=== PATIENT | male | born 1960 | race Asian ===

== ENCOUNTER 2019-10-18 11:23 | Emergency (ER) | payer MEDICAID, OTHER ==
[~2019-10-18] VITALS: Ht 170.2 cm; Wt 63.6 kg
[2019-10-18] MEDS ORDERED: IPRATROPIUM BROMIDE 0.5 MG/2.5 ML NEB SOLUTION NEB ONE (11:45)
[2019-10-18] MEDS ORDERED: ALBUTEROL SULFATE 5 MG/ML 20 ML NEB SOLN [BULK] NEB ONE (11:45)
[2019-10-18] MEDS ORDERED: ALBUTEROL SULFATE HFA 90 MCG/PUFF 8 GM INHALER IH ONE (11:45)
[2019-10-18] MEDS ORDERED: 0.9% SODIUM CHLORIDE 5 ML NEB SOLUTION NEB ONE (11:55)
[2019-10-18] MEDS ORDERED: PredniSONE 20 MG TABLET PO ONE ×2 (13:15)
[2019-10-18] MEDS ORDERED: AZITHROMYCIN 250 MG TABLET PO ONE (14:30)
[2019-10-18 14:56] VITALS: BP 111/76
== END 2019-10-18 15:29 | disposition home or self-care (01) ==
LOC: EMS 11:24
DX: J20.9 Acute bronchitis, unspecified (principal); J45.901 Unspecified asthma with (acute) exacerbation; F17.210 Nicotine dependence, cigarettes, uncomplicated
CPT/HCPCS: 71046; 94640; 94644; 99285; 99406; J7512; J3535

== ENCOUNTER 2020-01-20 17:06 | Emergency (ER) | payer OTHER ==
[~2020-01-20] VITALS: Ht 170.2 cm; Wt 68.2 kg
[2020-01-20] MEDS ORDERED: BECL10.6 IH (17:10)
[2020-01-20] MEDS ORDERED: ALBU8HFA IH (17:10)
[2020-01-20] MEDS ORDERED: MethylPREDNISolone SOD SUCC 125 MG/2 ML VIAL IVP ONE (17:30)
[2020-01-20] MEDS ORDERED: ALBUTEROL SULFATE HFA 90 MCG/PUFF 8 GM INHALER IH ONE (17:30)
[2020-01-20 18:18] LABS: BASOPHILS % (AUTO) 0.7 % (0.0-2.0); EOSINOPHILS % (AUTO) 10.1 % (1.0-6.0); HEMATOCRIT 43.5 % (41-53); HEMOGLOBIN 14.5 g/dL (13.5-17.5); LYMPHOCYTES # (AUTO) 1.4 K/uL (1.0-4.8); LYMPHOCYTES % (AUTO) 17.6 % (22.0-44.0); MEAN CORPUSCULAR HEMOGLOBIN 32.5 pg (26.0-34.0); MEAN CORPUSCULAR HGB CONC 33.5 G/dL (31.0-37.0); MEAN CORPUSCULAR VOLUME 97 fL (80-100); MONOCYTES # (AUTO) 0.5 K/uL (0.1-1.0); MONOCYTES % (AUTO) 6.8 % (2.0-9.0); NEUTROPHILS # (AUTO) 5.1 K/uL (1.8-7.7); NEUTROPHILS % (AUTO) 64.8 % (40.0-70.0); PLATELET COUNT (AUTO) 230 K/uL (150-450); RED BLOOD CELL COUNT(AUTO) 4.48 MIL/uL (4.50-5.90); RED CELL DISTRIBUTION WIDTH 13.3 % (11.5-14.5)
[2020-01-20 18:37] LABS: INFLUENZA TYPE A NEGATIVE FOR TYPE A (NEGATIVE); INFLUENZA TYPE B NEGATIVE FOR TYPE B (NEGATIVE)
[2020-01-20 18:41] LABS: PROTHROMBIN TIME 10.4 SEC (9.4-11.6)
[2020-01-20 18:53] LABS: ANION GAP 10 mmol/L (8-16); CALCIUM, TOTAL 8.9 mg/dL (8.8-10.5); CARBON DIOXIDE 26 mmol/L (22-29); CHLORIDE 103 mmol/L (98-107); CREATININE 0.85 mg/dL (0.60-1.30); GLOMERULAR FILTR. RATE CALC > 60 mL/min (>60); GLUCOSE,RANDOM 128 mg/dL (70-110); POTASSIUM 3.2 mmol/L (3.5-5.1); SODIUM SERUM 139 mmol/L (136-145); UREA NITROGEN, BLOOD 6 mg/dL (7-18)
[2020-01-20 18:59] LABS: B-TYPE NATRIURETIC PEPTIDE 14 pg/mL (0-100)
[2020-01-20] MEDS ORDERED: POTASSIUM CHLORIDE 20 MEQ ER TABLET PO ONE (19:00)
[2020-01-20 19:17] LABS: ALANINE AMINOTRANSFERASE 71 U/L (12-78); ALBUMIN 3.8 g/dL (3.4-5.0); ALKALINE PHOSPHATASE 85 U/L (46-116); ASPARTATE AMINOTRANSFERASE 39 U/L (15-37); BILIRUBIN,TOTAL 0.9 mg/dL (0.1-1.0); CREATINE KINASE, TOTAL ONLY 116 U/L (39-308); TOTAL PROTEIN, SERUM 7.5 g/dL (6.4-8.2)
[2020-01-20 19:52] LABS: APPEARANCE,URINE CLEAR (CLEAR); BILIRUBIN,URINE NEGATIVE (NEGATIVE); GLUCOSE, URINE (UA) NEGATIVE (NEGATIVE); KETONES,URINE NEGATIVE (NEGATIVE); LEUKOCYTE ESTERASE ,URINE NEGATIVE (NEGATIVE); NITRATE,URINE NEGATIVE (NEGATIVE); OCCULT BLOOD,URINE NEGATIVE (NEGATIVE); PH,URINE 6.5 (5.0-8.0); PROTEIN,URINE NEGATIVE (NEGATIVE)
[2020-01-20 20:25] VITALS: BP 127/83
== END 2020-01-20 20:47 | disposition home or self-care (01) ==
LOC: EMS 17:08
DX: J45.909 Unspecified asthma, uncomplicated (principal); F17.210 Nicotine dependence, cigarettes, uncomplicated; Z03.818 Encounter for observation for suspected exposure to other biological agents ruled out
CPT/HCPCS: 36415; 71045; 80053; 81003; 82550; 83880; 84484; 85025; 85610; 85730; 87635; 87804; 93005; 94640; 96374; 99285; J2930; J3535

== ENCOUNTER 2020-03-18 00:46 | Emergency (ER) | payer OTHER ==
[~2020-03-18] VITALS: Ht 172.7 cm; Wt 77.3 kg
[~2020-03-18 00:46] MED LIST: ALBU8HFA IH; BECL10.6 IH
[2020-03-18 02:11] VITALS: BP 133/90
[2020-03-18] MEDS ORDERED: HYDROGEN PEROXIDE 118 ML SOLUTION TP ONE (02:30)
[2020-03-18] MEDS ORDERED: BACITRACIN 0.9 GM PACKET OINTMENT TP ONE (02:30)
[2020-03-18] MEDS ORDERED: PERTUSS(ACELL),DIPH,TET VAC/PF 0.5 ML VIAL IM ONE (02:45)
== END 2020-03-18 03:02 | disposition home or self-care (01) ==
LOC: EMS 00:46
DX: S01.81XA Laceration without foreign body of other part of head, initial encounter (principal); F17.210 Nicotine dependence, cigarettes, uncomplicated; J45.909 Unspecified asthma, uncomplicated; W54.0XXA Bitten by dog, initial encounter; Y93.89 Activity, other specified; Y92.89 Other specified places as the place of occurrence of the external cause; Y99.8 Other external cause status
CPT/HCPCS: 90471; 90715; 99406

== ENCOUNTER 2020-05-13 12:59 | Emergency (ER) | payer OTHER ==
[~2020-05-13] VITALS: Ht 172.7 cm; Wt 63.6 kg
[2020-05-13 15:02] VITALS: BP 131/63
== END 2020-05-13 15:02 | disposition home or self-care (01) ==
LOC: EMS 13:03
DX: L03.115 Cellulitis of right lower limb (principal); J45.909 Unspecified asthma, uncomplicated; F17.210 Nicotine dependence, cigarettes, uncomplicated

== ENCOUNTER 2020-07-29 20:41 | Emergency (ER) | payer OTHER ==
[~2020-07-29] VITALS: Ht 170.2 cm; Wt 77.3 kg
[2020-07-29] MEDS ORDERED: MULT-1203 PO (20:50)
[2020-07-29 22:10] VITALS: BP 132/84
== END 2020-07-29 22:30 | disposition home or self-care (01) ==
LOC: EMS 20:43
DX: K12.1 Other forms of stomatitis (principal); F17.210 Nicotine dependence, cigarettes, uncomplicated; J45.909 Unspecified asthma, uncomplicated; Z79.899 Other long term (current) drug therapy
CPT/HCPCS: 99406

== ENCOUNTER 2020-11-14 04:11 | Emergency (ER) | payer OTHER ==
[~2020-11-14] VITALS: Ht 172.7 cm; Wt 77.3 kg
[~2020-11-14 04:11] MED LIST changes: -ALBU8HFA IH; -BECL10.6 IH; +MULT-1203 PO
[2020-11-14] MEDS ORDERED: ONDANSETRON HCL 4 MG/2 ML VIAL IVP ONE (04:45)
[2020-11-14] MEDS ORDERED: KETOROLAC TROMETHAMINE 30 MG/ML VIAL IVP ONE (04:45)
[2020-11-14 05:06] LABS: ANION GAP 12 mmol/L (8-16); CALCIUM, TOTAL 9.5 mg/dL (8.8-10.5); CARBON DIOXIDE 26 mmol/L (22-29); CHLORIDE 102 mmol/L (98-107); CREATININE 1.16 mg/dL (0.60-1.30); GLOMERULAR FILTR. RATE CALC > 60 mL/min (>60); GLUCOSE,RANDOM 204 mg/dL (70-110); POTASSIUM 3.4 mmol/L (3.5-5.1); SODIUM SERUM 140 mmol/L (136-145); UREA NITROGEN, BLOOD 13 mg/dL (7-18)
[2020-11-14 05:07] LABS: BASOPHILS % (AUTO) 0.1 % (0.0-2.0); EOSINOPHILS % (AUTO) 2.4 % (1.0-6.0); HEMATOCRIT 43.4 % (41-53); HEMOGLOBIN 14.7 g/dL (13.5-17.5); LYMPHOCYTES # (AUTO) 1.4 K/uL (1.0-4.8); LYMPHOCYTES % (AUTO) 12.2 % (22.0-44.0); MEAN CORPUSCULAR HGB CONC 33.9 G/dL (31.0-37.0); MEAN CORPUSCULAR VOLUME 94 fL (80-100); MONOCYTES # (AUTO) 0.4 K/uL (0.1-1.0); MONOCYTES % (AUTO) 3.5 % (2.0-9.0); NEUTROPHILS # (AUTO) 9.4 K/uL (1.8-7.7); NEUTROPHILS % (AUTO) 81.8 % (40.0-70.0); PLATELET COUNT (AUTO) 205 K/uL (150-450); RED CELL DISTRIBUTION WIDTH 12.8 % (11.5-14.5)
[2020-11-14 05:11] LABS: ALANINE AMINOTRANSFERASE 62 U/L (12-78); ALBUMIN 4.1 g/dL (3.4-5.0); ALKALINE PHOSPHATASE 103 U/L (46-116); ASPARTATE AMINOTRANSFERASE 31 U/L (15-37); BILIRUBIN,TOTAL 0.8 mg/dL (0.1-1.0); LIPASE 236 U/L (73-393)
[2020-11-14] MEDS ORDERED: POTASSIUM CHLORIDE 20 MEQ ER TABLET PO ONE (05:30)
[2020-11-14 06:00] VITALS: BP 140/84
== END 2020-11-14 06:08 | disposition home or self-care (01) ==
LOC: EMS 04:12
DX: K80.20 Calculus of gallbladder without cholecystitis without obstruction (principal); E86.9 Volume depletion, unspecified; F17.210 Nicotine dependence, cigarettes, uncomplicated
CPT/HCPCS: 76705; 80053; 83690; 85025; 96374; 96375; 99284; J1885; J2405

== ENCOUNTER 2021-03-18 13:01 | Emergency (ER) | payer OTHER ==
[~2021-03-18] VITALS: Ht 170.2 cm; Wt 72.7 kg
[2021-03-18] MEDS ORDERED: MethylPREDNISolone SOD SUCC 125 MG/2 ML VIAL IVP ONE (13:45)
[2021-03-18] MEDS ORDERED: IPRATROPIUM BROMIDE 0.5 MG/2.5 ML NEB SOLUTION NEB ONE (13:45)
[2021-03-18] MEDS ORDERED: ALBUTEROL SULFATE 5 MG/ML 20 ML NEB SOLN [BULK] NEB ONE ×2 (13:45→15:30)
[2021-03-18 14:21] LABS: COVID AG,FIA SOURCE NASAL SWAB
[2021-03-18 16:07] LABS: HEMATOCRIT 43.6 % (41-53); HEMOGLOBIN 14.3 g/dL (13.5-17.5); MEAN CORPUSCULAR HEMOGLOBIN 31.2 pg (26.0-34.0); MEAN CORPUSCULAR HGB CONC 32.7 G/dL (31.0-37.0); MEAN CORPUSCULAR VOLUME 95 fL (80-100); PLATELET COUNT (AUTO) 206 K/uL (150-450); RED BLOOD CELL COUNT(AUTO) 4.58 MIL/uL (4.50-5.90); RED CELL DISTRIBUTION WIDTH 13.5 % (11.5-14.5)
[2021-03-18 16:15] LABS: ANION GAP 17 mmol/L (8-16); CALCIUM, TOTAL 8.8 mg/dL (8.8-10.5); CARBON DIOXIDE 23 mmol/L (22-29); CHLORIDE 104 mmol/L (98-107); CREATININE 1.05 mg/dL (0.60-1.30); GLOMERULAR FILTR. RATE CALC > 60 mL/min (>60); GLUCOSE,RANDOM 170 mg/dL (70-110); POTASSIUM 3.1 mmol/L (3.5-5.1); SODIUM SERUM 144 mmol/L (136-145); UREA NITROGEN, BLOOD 10 mg/dL (7-18)
[2021-03-18 16:20] LABS: ALANINE AMINOTRANSFERASE 51 U/L (12-78); ALBUMIN 3.6 g/dL (3.4-5.0); ALKALINE PHOSPHATASE 92 U/L (46-116); ASPARTATE AMINOTRANSFERASE 25 U/L (15-37); BILIRUBIN,TOTAL 0.5 mg/dL (0.1-1.0); TOTAL PROTEIN, SERUM 7.5 g/dL (6.4-8.2)
[2021-03-18 16:24] LABS: BAND NEUTROPHILS % (MANUAL) 5 % (0-5); LYMPHOCYTES % (MANUAL) 8 % (22-44); MONOCYTES % (MANUAL) 3 % (2-9); PLATELET MORPHOLOGY COMMENT GIANT PLTS PRESENT; SEGMENTED NEUTROPHILS % 84 % (40-70)
[2021-03-18 16:33] VITALS: BP 118/68
== END 2021-03-18 16:42 | disposition home or self-care (01) ==
LOC: EMS 13:06
DX: J45.901 Unspecified asthma with (acute) exacerbation (principal); E78.00 Pure hypercholesterolemia, unspecified; I10 Essential (primary) hypertension; F17.210 Nicotine dependence, cigarettes, uncomplicated; Z20.822 Contact with and (suspected) exposure to COVID-19
CPT/HCPCS: 36415; 71045; 80053; 85025; 87426; 94640; 96374; 99291; J2930

== ENCOUNTER 2022-03-20 13:54 | Emergency (ER) | payer OTHER ==
[~2022-03-20] VITALS: Ht 172.7 cm; Wt 63.6 kg
[2022-03-20] MEDS ORDERED: ATOR20TA86 PO (14:02)
[2022-03-20] MEDS ORDERED: HYDROGEN PEROXIDE 118 ML SOLUTION TP ONE (15:00)
[2022-03-20] MEDS ORDERED: RISP4TAB73 PO (15:08)
[2022-03-20] MEDS ORDERED: TRAZ-257 PO (15:08)
[2022-03-20] MEDS ORDERED: RISP0.5T39 PO (15:08)
[2022-03-20 15:10] VITALS: BP 131/85
== END 2022-03-20 15:58 | disposition home or self-care (01) ==
LOC: EMS 13:54
DX: H61.22 Impacted cerumen, left ear (principal); E78.00 Pure hypercholesterolemia, unspecified; F17.210 Nicotine dependence, cigarettes, uncomplicated; J45.909 Unspecified asthma, uncomplicated; I10 Essential (primary) hypertension
CPT/HCPCS: 69209; 99282; Z7502; Z7610

== ENCOUNTER 2022-10-06 13:28 | Emergency (ER) | payer OTHER ==
[~2022-10-06] VITALS: Ht 175.3 cm; Wt 77.3 kg
[~2022-10-06 13:28] MED LIST changes: +ATOR20TA86 PO; +RISP0.5T39 PO; +RISP4TAB73 PO; +TRAZ-257 PO
[2022-10-06 16:43] VITALS: BP 106/70
== END 2022-10-06 18:03 | disposition home or self-care (01) ==
LOC: EMS 13:41
DX: H61.21 Impacted cerumen, right ear (principal); J45.909 Unspecified asthma, uncomplicated; E78.00 Pure hypercholesterolemia, unspecified; I10 Essential (primary) hypertension; F17.210 Nicotine dependence, cigarettes, uncomplicated; K76.0 Fatty (change of) liver, not elsewhere classified
CPT/HCPCS: 69209; 99284; Z7502

== ENCOUNTER 2022-12-08 16:11 | Emergency (ER) | payer OTHER ==
[~2022-12-08] VITALS: Ht 172.7 cm; Wt 77.3 kg
[2022-12-08 17:21] VITALS: BP 135/70
== END 2022-12-08 18:44 | disposition home or self-care (01) ==
LOC: EMS 16:14
DX: G47.00 Insomnia, unspecified (principal); J45.909 Unspecified asthma, uncomplicated; E78.00 Pure hypercholesterolemia, unspecified; I10 Essential (primary) hypertension; F17.210 Nicotine dependence, cigarettes, uncomplicated; K76.0 Fatty (change of) liver, not elsewhere classified
CPT/HCPCS: 99281; Z7502

== ENCOUNTER 2023-01-25 11:11 | Emergency (ER) | payer OTHER ==
[~2023-01-25] VITALS: Ht 170.2 cm; Wt 81.8 kg
[~2023-01-25 11:11] MED LIST changes: -RISP0.5T39 PO
[2023-01-25] MEDS ORDERED: ACETAMINOPHEN 500 MG TABLET PO ONE (15:30)
[2023-01-25 15:36] LABS: BASOPHILS % (AUTO) 0.6 % (0.0-2.0); EOSINOPHILS % (AUTO) 0.9 % (1.0-6.0); HEMATOCRIT 44.8 % (41-53); HEMOGLOBIN 14.7 g/dL (13.5-17.5); LYMPHOCYTES # (AUTO) 1.5 K/uL (1.0-4.8); LYMPHOCYTES % (AUTO) 13.1 % (22.0-44.0); MEAN CORPUSCULAR HGB CONC 32.7 G/dL (31.0-37.0); MEAN CORPUSCULAR VOLUME 95 fL (80-100); MONOCYTES # (AUTO) 0.7 K/uL (0.1-1.0); MONOCYTES % (AUTO) 6.3 % (2.0-9.0); NEUTROPHILS % (AUTO) 79.1 % (40.0-70.0); PLATELET COUNT (AUTO) 235 K/uL (150-450); RED BLOOD CELL COUNT(AUTO) 4.73 MIL/uL (4.50-5.90); RED CELL DISTRIBUTION WIDTH 13.3 % (11.5-14.5)
[2023-01-25 15:44] LABS: ANION GAP 12 mmol/L (8-16); CALCIUM, TOTAL 8.9 mg/dL (8.8-10.5); CARBON DIOXIDE 25 mmol/L (22-29); CHLORIDE 103 mmol/L (98-107); CREATININE 0.99 mg/dL (0.60-1.30); GLOMERULAR FILTR. RATE CALC > 60 mL/min (>60); GLUCOSE,RANDOM 193 mg/dL (70-110); POTASSIUM 3.4 mmol/L (3.5-5.1); SODIUM SERUM 140 mmol/L (136-145); UREA NITROGEN, BLOOD 12 mg/dL (7-18)
[2023-01-25 18:43] VITALS: BP 139/84
== END 2023-01-25 18:46 | disposition home or self-care (01) ==
LOC: EMS 11:12
DX: R51.9 Headache, unspecified (principal); J45.909 Unspecified asthma, uncomplicated; E78.00 Pure hypercholesterolemia, unspecified; I10 Essential (primary) hypertension; F17.210 Nicotine dependence, cigarettes, uncomplicated
CPT/HCPCS: 70450; 80048; 85025; 99284

== ENCOUNTER 2023-03-13 15:05 | Emergency (ER) | payer OTHER ==
[~2023-03-13] VITALS: Ht 172.7 cm; Wt 79.5 kg
[~2023-03-13 15:05] MED LIST changes: +ATOR20TA PO; -ATOR20TA86 PO
[2023-03-13 15:18] VITALS: TEMP 98.6
[2023-03-13] MEDS ORDERED: ALBU18HF12 IH (15:21)
[2023-03-13] MEDS ORDERED: FAMOTIDINE 40 MG in SODIUM CHLORIDE 0.9% 100 ML IV ONE (16:15)
[2023-03-13] MEDS ORDERED: SODIUM CHLORIDE 0.9% 1,000 ML IV ONE (16:15)
[2023-03-13 16:59] LABS: BASOPHILS % (AUTO) 0.4 % (0.0-2.0); EOSINOPHILS % (AUTO) 3.3 % (1.0-6.0); HEMATOCRIT 42.2 % (41-53); HEMOGLOBIN 14.3 g/dL (13.5-17.5); LYMPHOCYTES # (AUTO) 1.4 K/uL (1.0-4.8); LYMPHOCYTES % (AUTO) 16.2 % (22.0-44.0); MEAN CORPUSCULAR HEMOGLOBIN 32.3 pg (26.0-34.0); MEAN CORPUSCULAR HGB CONC 33.9 G/dL (31.0-37.0); MEAN CORPUSCULAR VOLUME 95 fL (80-100); MONOCYTES # (AUTO) 0.6 K/uL (0.1-1.0); MONOCYTES % (AUTO) 6.5 % (2.0-9.0); NEUTROPHILS # (AUTO) 6.3 K/uL (1.8-7.7); NEUTROPHILS % (AUTO) 73.6 % (40.0-70.0); PLATELET COUNT (AUTO) 155 K/uL (150-450); RED BLOOD CELL COUNT(AUTO) 4.43 MIL/uL (4.50-5.90); RED CELL DISTRIBUTION WIDTH 13.1 % (11.5-14.5)
[2023-03-13 17:08] LABS: ANION GAP 10 mmol/L (8-16); CARBON DIOXIDE 27 mmol/L (22-29); CHLORIDE 105 mmol/L (98-107); CREATININE 0.74 mg/dL (0.60-1.30); GLOMERULAR FILTR. RATE CALC > 60 mL/min (>60); GLUCOSE,RANDOM 104 mg/dL (70-110); POTASSIUM 3.4 mmol/L (3.5-5.1); SODIUM SERUM 142 mmol/L (136-145)
[2023-03-13 17:14] LABS: ALANINE AMINOTRANSFERASE 161 U/L (12-78); ALBUMIN 3.6 g/dL (3.4-5.0); ALKALINE PHOSPHATASE 111 U/L (46-116); ASPARTATE AMINOTRANSFERASE 178 U/L (15-37); BILIRUBIN,TOTAL 1.2 mg/dL (0.1-1.0); LIPASE 176 U/L (73-393); TOTAL PROTEIN, SERUM 7.7 g/dL (6.4-8.2)
[2023-03-13 17:21] LABS: COVID AG,FIA SOURCE NASOPHARYNGEAL
[2023-03-13 17:35] LABS: LACTIC ACID 1.3 mmol/L (0.4-2.0)
[2023-03-13 18:48] LABS: APPEARANCE,URINE CLEAR (CLEAR); BILIRUBIN,URINE NEGATIVE (NEGATIVE); GLUCOSE, URINE (UA) NEGATIVE (NEGATIVE); KETONES,URINE NEGATIVE (NEGATIVE); LEUKOCYTE ESTERASE ,URINE NEGATIVE (NEGATIVE); NITRATE,URINE NEGATIVE (NEGATIVE); OCCULT BLOOD,URINE NEGATIVE (NEGATIVE); PROTEIN,URINE NEGATIVE (NEGATIVE); UROBILINOGEN,URINE <=1.0 mg/dL (<=1.0)
[2023-03-13 18:54] LABS: BACTERIA,URINE None Seen /HPF (None Seen); RBC,URINE None Seen /HPF (0-2); SQUAMOUS EPITHELIAL CELL,UR None Seen /LPF (None Seen); WBC,URINE 0-2 /HPF (0-5)
[2023-03-13 19:29] VITALS: BP 127/81; PULSE 79; RESP 18
[2023-03-15] MEDS ORDERED: FLUT12AE19 IH (11:24)
[2023-03-15] MEDS ORDERED: FLUT12AE20 IH (13:30)
== END 2023-03-13 19:32 | disposition home or self-care (01) ==
LOC: EMS 15:06
DX: R10.84 Generalized abdominal pain (principal); K80.50 Calculus of bile duct without cholangitis or cholecystitis without obstruction; J45.909 Unspecified asthma, uncomplicated; E78.00 Pure hypercholesterolemia, unspecified; I10 Essential (primary) hypertension; F17.210 Nicotine dependence, cigarettes, uncomplicated; K76.0 Fatty (change of) liver, not elsewhere classified; Z20.822 Contact with and (suspected) exposure to COVID-19
CPT/HCPCS: 99285; 74176; 96365; 76700; 87426; 80053; 81001; 83605; 83690; 84484; 85025; 36415; 74022; 93005; J3490; J7050

== ENCOUNTER 2024-03-13 13:46 | Emergency (ER) | payer OTHER ==
[~2024-03-13] VITALS: Ht 172.7 cm; Wt 72.7 kg
[~2024-03-13 13:46] MED LIST changes: +ALBU18HF12 IH; +FLUT12AE20 IH; -RISP4TAB73 PO; +RISP4TAB94 PO
[2024-03-13 13:47] VITALS: TEMP 98
[2024-03-13] MEDS ORDERED: RISP1TAB48 PO (13:50)
[2024-03-13] MEDS: LIDOCAINE/PRILOCAINE 2.5% 30 GM CREAM TP ONE (15:50)
[2024-03-13] MEDS ORDERED: CEPH-558 PO (16:40)
[2024-03-13] MEDS ORDERED: SULF-261 PO (16:40)
[2024-03-13 17:30] VITALS: BP 122/79; PULSE 89; RESP 18
== END 2024-03-13 18:08 | disposition home or self-care (01) ==
LOC: EMS 13:46
DX: L72.3 Sebaceous cyst (principal); I10 Essential (primary) hypertension; E78.00 Pure hypercholesterolemia, unspecified; J45.909 Unspecified asthma, uncomplicated; K76.0 Fatty (change of) liver, not elsewhere classified
CPT/HCPCS: 69000; 99282; Z7502; Z7610

== ENCOUNTER 2024-07-12 14:13 | Emergency (ER) | payer OTHER ==
[~2024-07-12] VITALS: Ht 162.6 cm; Wt 81.8 kg
[~2024-07-12 14:13] MED LIST changes: -FLUT12AE20 IH; -MULT-1203 PO; +PRED-554 PO; -RISP4TAB94 PO; -TRAZ-257 PO
[2024-07-12 14:21] VITALS: TEMP 97.9
[2024-07-12] MEDS: IBUPROFEN 600 MG TABLET PO ONE (17:35)
[2024-07-12] MEDS: HYDROCODONE/ACETAMINOPHEN 5-325 MG TABLET PO ONE (17:35)
[2024-07-12 18:00] VITALS: BP 128/66; PULSE 77; RESP 15; O2SAT 97
[2024-07-12] MEDS ORDERED: HYDR-4062 PO (18:10)
[2024-07-12] MEDS ORDERED: IBUP-1554 PO (18:10)
== END 2024-07-12 18:45 | disposition home or self-care (01) ==
LOC: EMS 14:13
DX: S42.252A Displaced fracture of greater tuberosity of left humerus, initial encounter for closed fracture (principal); S20.219A Contusion of unspecified front wall of thorax, initial encounter; E78.00 Pure hypercholesterolemia, unspecified; I10 Essential (primary) hypertension; J45.909 Unspecified asthma, uncomplicated; W01.0XXA Fall on same level from slipping, tripping and stumbling without subsequent striking against object, initial encounter; Y93.89 Activity, other specified; Y92.89 Other specified places as the place of occurrence of the external cause; Y99.8 Other external cause status
CPT/HCPCS: 71101; 99284; 73030-TC; Z7502; Z7610

== ENCOUNTER 2024-08-19 00:55 | Inpatient (IN) | payer OTHER ==
[2024-08-19] VITALS (14 sets, daily range): BP systolic 130–147; BP diastolic 75–92; PULSE 65–98; RESP 16–20; TEMP 97.8–98; O2SAT 92–98
[~2024-08-19] VITALS: Ht 170.2 cm; Wt 75.0 kg
[~2024-08-19 00:55] MED LIST changes: +HYDR-4062 PO; +IBUP-1554 PO
[2024-08-19] MEDS: IPRATROPIUM BROMIDE 0.5 MG/2.5 ML NEB SOLUTION NEB ONE (02:07)
[2024-08-19] MEDS: ALBUTEROL SULFATE 2.5 MG/0.5 ML NEB SOLUTION NEB ONE ×3 (02:08→05:16)
[2024-08-19] MEDS: MethylPREDNISolone SOD SUCC 125 MG/2 ML VIAL IM ONE (02:12)
[2024-08-19] MEDS: EPINEPHrine 1:1,000 [1 MG/ML] VIAL IM ONE (02:48)
[2024-08-19] MEDS: CODEINE SULFATE 30 MG TABLET PO ONE (05:13)
[2024-08-19] MEDS ORDERED: 0.9% SODIUM CHLORIDE 5 ML NEB SOLUTION NEB ONE (05:15)
[2024-08-19 05:18] LABS: BASOPHILS % (AUTO) 0.5 % (0.0-2.0); EOSINOPHILS % (AUTO) 1.8 % (1.0-6.0); HEMATOCRIT 42.7 % (41-53); HEMOGLOBIN 14.3 g/dL (13.5-17.5); LYMPHOCYTES # (AUTO) 0.8 K/uL (1.0-4.8); LYMPHOCYTES % (AUTO) 10.3 % (22.0-44.0); MEAN CORPUSCULAR HEMOGLOBIN 31.7 pg (26.0-34.0); MEAN CORPUSCULAR HGB CONC 33.6 G/dL (31.0-37.0); MEAN CORPUSCULAR VOLUME 95 fL (80-100); MONOCYTES # (AUTO) 0.1 K/uL (0.1-1.0); MONOCYTES % (AUTO) 1.7 % (2.0-9.0); NEUTROPHILS # (AUTO) 6.9 K/uL (1.8-7.7); PLATELET COUNT (AUTO) 150 K/uL (150-450); RED BLOOD CELL COUNT(AUTO) 4.52 MIL/uL (4.50-5.90); RED CELL DISTRIBUTION WIDTH 13.4 % (11.5-14.5)
[2024-08-19 05:21] LABS: ANION GAP 14 mmol/L (8-16); CALCIUM, TOTAL 9.2 mg/dL (8.8-10.5); CARBON DIOXIDE 24 mmol/L (22-29); CHLORIDE 105 mmol/L (98-107); CREATININE 0.91 mg/dL (0.60-1.30); GLOMERULAR FILTR. RATE CALC > 60 mL/min (>60); GLUCOSE,RANDOM 163 mg/dL (70-110); POTASSIUM 3.4 mmol/L (3.5-5.1); SODIUM SERUM 143 mmol/L (136-145); UREA NITROGEN, BLOOD 7 mg/dL (7-18)
[2024-08-19 05:49] LABS: NEUTROPHILS % (AUTO) 85.7 % (40.0-70.0)
[2024-08-19] MEDS ORDERED: ONDANSETRON HCL 4 MG/2 ML VIAL IVP PRN (11:00)
[2024-08-19] MEDS ORDERED: OxyCODONE HCL/ACETAMINOPHEN 5-325 MG TABLET PO PRN ×2 (11:00)
[2024-08-19] MEDS ORDERED: 0.9% SODIUM CHLORIDE 10 ML SYRINGE IVP PRN (11:00)
[2024-08-19] MEDS ORDERED: POTASSIUM CHL 10 MEQ/WATER 50 ML IV PRN (11:15)
[2024-08-19] MEDS ORDERED: POTASSIUM CHLORIDE 20 MEQ ER TABLET PO PRN (11:15)
[2024-08-19] MEDS ORDERED: RisperiDONE 1 MG TABLET PO SCH (11:15)
[2024-08-19] MEDS: MethylPREDNISolone SOD SUCC 125 MG/2 ML VIAL IVP SCH (12:00)
[2024-08-19] MEDS: HEPARIN SODIUM,PORCINE 5,000 UNITS/ML VIAL SQ SCH (12:00)
[2024-08-19] MEDS: IPRATROPIUM BROMIDE 0.5 MG/2.5 ML NEB SOLUTION NEB SCH (16:15)
[2024-08-19] MEDS: ALBUTEROL SULFATE 2.5 MG/0.5 ML NEB SOLUTION NEB SCH (16:15)
[2024-08-19] MEDS: DOCUSATE SODIUM 100 MG CAPSULE PO SCH (20:34)
[2024-08-19] MEDS: ATORVASTATIN CALCIUM 20 MG TABLET PO SCH (20:35)
[2024-08-19] MEDS: RisperiDONE 1 MG TABLET PO SCH (20:35)
[2024-08-19] MEDS: GuaiFENesin/D-METHORPHAN [SUGAR-FREE] 200-20MG/10 ML SYRUP UDCUP PO PRN (23:25)
[2024-08-20] VITALS (13 sets, daily range): BP systolic 108–131; BP diastolic 70–77; PULSE 77–103; RESP 16–20; TEMP 97.7–98.3; O2SAT 90–98
[2024-08-20] MEDS: ALBUTEROL SULFATE 2.5 MG/0.5 ML NEB SOLUTION NEB PRN (05:57)
[2024-08-20] MEDS: BENZONATATE 100 MG CAPSULE PO PRN (05:58)
[2024-08-20 08:03] LABS: ANION GAP 8 mmol/L (8-16); CALCIUM, TOTAL 9.1 mg/dL (8.8-10.5); CARBON DIOXIDE 25 mmol/L (22-29); CHLORIDE 106 mmol/L (98-107); GLOMERULAR FILTR. RATE CALC > 60 mL/min (>60); GLUCOSE,RANDOM 141 mg/dL (70-110); POTASSIUM 3.7 mmol/L (3.5-5.1); SODIUM SERUM 139 mmol/L (136-145); UREA NITROGEN, BLOOD 13 mg/dL (7-18)
[2024-08-20 08:20] LABS: BASOPHILS % (AUTO) 0.2 % (0.0-2.0); EOSINOPHILS % (AUTO) 0 % (1.0-6.0); HEMOGLOBIN 13.7 g/dL (13.5-17.5); LYMPHOCYTES # (AUTO) 1.3 K/uL (1.0-4.8); LYMPHOCYTES % (AUTO) 7.5 % (22.0-44.0); MEAN CORPUSCULAR HGB CONC 33.4 G/dL (31.0-37.0); MEAN CORPUSCULAR VOLUME 96 fL (80-100); MONOCYTES # (AUTO) 0.6 K/uL (0.1-1.0); MONOCYTES % (AUTO) 3.5 % (2.0-9.0); NEUTROPHILS # (AUTO) 14.8 K/uL (1.8-7.7); PLATELET COUNT (AUTO) 171 K/uL (150-450); RED BLOOD CELL COUNT(AUTO) 4.28 MIL/uL (4.50-5.90); RED CELL DISTRIBUTION WIDTH 13.3 % (11.5-14.5); WHITE BLOOD COUNT (AUTO) 16.7 K/uL (4.5-11.0)
[2024-08-20] MEDS: PANTOPRAZOLE SODIUM 40 MG/VIAL IVP SCH (08:36)
[2024-08-20 08:37] LABS: NEUTROPHILS % (AUTO) 88.8 % (40.0-70.0)
[2024-08-21] VITALS (11 sets, daily range): BP systolic 123–138; BP diastolic 67–82; PULSE 60–94; RESP 18–20; TEMP 97.5–98.3; O2SAT 90–99
[2024-08-21] MEDS: AZITHROMYCIN 500 MG/NS 250 ML IV SCH (00:40)
[2024-08-21] MEDS: MethylPREDNISolone SOD SUCC 125 MG/2 ML VIAL IVP SCH (13:00)
[2024-08-21] MEDS: BENZONATATE 100 MG CAPSULE PO SCH (16:03)
[2024-08-21] MEDS: BUDESONIDE 0.5 MG/2 ML NEB SOLUTION NEB SCH (21:00)
[2024-08-22] VITALS (7 sets, daily range): BP systolic 116; BP diastolic 75–77; PULSE 70–87; RESP 17–20; TEMP 97.8–98.1; O2SAT 90–97
[2024-08-22 07:32] LABS: ANION GAP 6 mmol/L (8-16); CALCIUM, TOTAL 8.4 mg/dL (8.8-10.5); CARBON DIOXIDE 29 mmol/L (22-29); CHLORIDE 106 mmol/L (98-107); CREATININE 0.83 mg/dL (0.60-1.30); GLOMERULAR FILTR. RATE CALC > 60 mL/min (>60); GLUCOSE,RANDOM 177 mg/dL (70-110); POTASSIUM 3.6 mmol/L (3.5-5.1); SODIUM SERUM 141 mmol/L (136-145); UREA NITROGEN, BLOOD 14 mg/dL (7-18)
[2024-08-22 07:46] LABS: BASOPHILS % (AUTO) 0.1 % (0.0-2.0); EOSINOPHILS % (AUTO) 0 % (1.0-6.0); HEMATOCRIT 41.2 % (41-53); HEMOGLOBIN 14.1 g/dL (13.5-17.5); LYMPHOCYTES # (AUTO) 1.1 K/uL (1.0-4.8); LYMPHOCYTES % (AUTO) 7.8 % (22.0-44.0); MEAN CORPUSCULAR HEMOGLOBIN 32.1 pg (26.0-34.0); MEAN CORPUSCULAR HGB CONC 34.3 G/dL (31.0-37.0); MEAN CORPUSCULAR VOLUME 94 fL (80-100); MONOCYTES # (AUTO) 0.3 K/uL (0.1-1.0); MONOCYTES % (AUTO) 2.2 % (2.0-9.0); PLATELET COUNT (AUTO) 157 K/uL (150-450); RED CELL DISTRIBUTION WIDTH 13.1 % (11.5-14.5); WHITE BLOOD COUNT (AUTO) 14.5 K/uL (4.5-11.0)
[2024-08-22 07:47] LABS: NEUTROPHILS % (AUTO) 89.9 % (40.0-70.0)
[2024-08-22] MEDS ORDERED: ALBU18HF12 IH (10:43)
[2024-08-22] MEDS ORDERED: BENZ-227 PO (10:43)
[2024-08-22] MEDS ORDERED: FLUT1BLS10 IH (10:43)
[2024-08-22] MEDS ORDERED: PRED-554 PO (10:47)
== END 2024-08-22 13:30 | disposition home or self-care (01) | DRG 189 ==
LOC: EMS 00:56 → EDH 05:05 → UNDOADMIN 05:10 → EDH 05:10 → 4E 05:54
PROVIDERS: ADMIT Internal Medicine; ATTEND Internal Medicine
DX: J96.01 Acute respiratory failure with hypoxia (principal); J45.901 Unspecified asthma with (acute) exacerbation; J44.1 Chronic obstructive pulmonary disease with (acute) exacerbation; I10 Essential (primary) hypertension; E78.00 Pure hypercholesterolemia, unspecified; K76.0 Fatty (change of) liver, not elsewhere classified
CPT/HCPCS: 71045; 80048; 85025; 94060; 94640; 99285; G0378; J0171; J0456; J1644; J2470; J2919; 36415-L1; 36415-TC; J7613

== ENCOUNTER 2025-05-16 22:34 | Emergency (ER) | payer OTHER ==
[~2025-05-16] VITALS: Ht 175.3 cm; Wt 77.2 kg
[~2025-05-16 22:34] MED LIST changes: +BENZ-227 PO; +FLUT1BLS10 IH
[2025-05-16] MEDS ORDERED: AMOX500C2 PO (23:51)
[2025-05-16] MEDS ORDERED: IBUP-1492 PO (23:51)
[2025-05-16] MEDS ORDERED: CIPOTIC AD (23:51)
[2025-05-17 00:16] VITALS: BP 121/75; PULSE 85; RESP 18; TEMP 98.105288; O2SAT 100
== END 2025-05-17 00:17 | disposition home or self-care (01) ==
LOC: EMS 23:44
DX: H66.91 Otitis media, unspecified, right ear (principal); H60.91 Unspecified otitis externa, right ear; I10 Essential (primary) hypertension; J45.909 Unspecified asthma, uncomplicated; K76.0 Fatty (change of) liver, not elsewhere classified; E78.00 Pure hypercholesterolemia, unspecified; Z79.52 Long term (current) use of systemic steroids; Z79.51 Long term (current) use of inhaled steroids; Z79.899 Other long term (current) drug therapy
CPT/HCPCS: 99283; Z7502

== ENCOUNTER 2025-06-08 03:24 | Emergency (ER) | payer OTHER ==
[~2025-06-08] VITALS: Ht 172.7 cm; Wt 72.7 kg
[2025-06-08 03:24] VITALS: TEMP 98.6
[~2025-06-08 03:24] MED LIST changes: +AMOX500C2 PO; +CIPOTIC AD; +IBUP-1492 PO
[2025-06-08 03:47] LABS: COVID AG,FIA SOURCE NASAL SWAB
[2025-06-08 03:58] LABS: SARS-COV2 (COVID) ANTIGEN,FIA Negative (Negative)
[2025-06-08 04:02] LABS: INFLUENZA TYPE A NEGATIVE FOR TYPE A (NEGATIVE); INFLUENZA TYPE B NEGATIVE FOR TYPE B (NEGATIVE)
[2025-06-08] MEDS ORDERED: BENZ-227 PO (05:04)
[2025-06-08 05:19] VITALS: BP 98/70; PULSE 75; RESP 18; O2SAT 95
[2025-06-08] MEDS: ACETAMINOPHEN 500 MG TABLET PO ONE (05:28)
[2025-06-08] MEDS: IBUPROFEN 400 MG TABLET PO ONE (05:28)
== END 2025-06-08 05:34 | disposition home or self-care (01) ==
LOC: EMS 03:25
DX: J02.8 Acute pharyngitis due to other specified organisms (principal); B97.89 Other viral agents as the cause of diseases classified elsewhere; R05.9 Cough, unspecified; R50.9 Fever, unspecified; E78.00 Pure hypercholesterolemia, unspecified; I10 Essential (primary) hypertension; J45.909 Unspecified asthma, uncomplicated; Z79.2 Long term (current) use of antibiotics; Z79.51 Long term (current) use of inhaled steroids; Z79.52 Long term (current) use of systemic steroids; Z20.822 Contact with and (suspected) exposure to COVID-19
CPT/HCPCS: 99284; 87426; 87804; J8540; Z7502; Z7610

== ENCOUNTER 2025-06-11 08:32 | Emergency (ER) | payer OTHER ==
[~2025-06-11] VITALS: Ht 172.7 cm; Wt 72.7 kg
[2025-06-11 08:36] VITALS: TEMP 98.4
[2025-06-11 08:54] LABS: COVID AG,FIA SOURCE NASAL SWAB
[2025-06-11 09:32] LABS: PLATELET COUNT (AUTO) 172 K/uL (150-450); RED BLOOD CELL COUNT(AUTO) 4.51 MIL/uL (4.50-5.90); RED CELL DISTRIBUTION WIDTH 13.4 % (11.5-14.5); WHITE BLOOD COUNT (AUTO) 9.2 K/uL (4.5-11.0)
[2025-06-11 09:35] LABS: SARS-COV2 (COVID) ANTIGEN,FIA Negative (Negative)
[2025-06-11 09:37] LABS: INFLUENZA TYPE A NEGATIVE FOR TYPE A (NEGATIVE); INFLUENZA TYPE B NEGATIVE FOR TYPE B (NEGATIVE)
[2025-06-11 09:37] LABS: CALCIUM, TOTAL 8.4 mg/dL (8.8-10.5); CREATININE 0.82 mg/dL (0.60-1.30); GLOMERULAR FILTR. RATE CALC > 60 mL/min (>60); GLUCOSE,RANDOM 189 mg/dL (70-110); SODIUM SERUM 136 mmol/L (136-145); UREA NITROGEN, BLOOD 8 mg/dL (7-18)
[2025-06-11 09:48] LABS: TROPONIN I-HIGH SENSITIVITY 4 ng/L (<76)
[2025-06-11 09:49] LABS: ASPARTATE AMINOTRANSFERASE 22.0 U/L (15-37); TOTAL PROTEIN, SERUM 7.0 g/dL (6.4-8.2)
[2025-06-11] MEDS ORDERED: AMOX875T2 PO (12:08)
[2025-06-11 12:26] VITALS: BP 134/96; PULSE 98; RESP 18; O2SAT 97
== END 2025-06-11 12:32 | disposition home or self-care (01) ==
LOC: EMS 08:32
DX: J01.90 Acute sinusitis, unspecified (principal); J45.909 Unspecified asthma, uncomplicated; R05.9 Cough, unspecified; E78.00 Pure hypercholesterolemia, unspecified; I10 Essential (primary) hypertension; Z79.51 Long term (current) use of inhaled steroids; Z20.822 Contact with and (suspected) exposure to COVID-19; Z79.52 Long term (current) use of systemic steroids; Z79.899 Other long term (current) drug therapy
CPT/HCPCS: 71045; 80048; 80076; 83880; 84484; 85025; 87804; 93005; 99285; 36415-L1; 36415-TC